=== PATIENT | male | born 1955 | race Caucasian/White ===

== ENCOUNTER → 2016-08-03 | Outpatient (CLI) | payer SELFPAY ==
[2016-08-03 18:41] LABS: Basophils # (A) 0.1 k/uL (0-0.2); Basophils % (A) 1 %; CH 33.8; Eosinophils # (A) 0.4 k/uL (0-0.7); Eosinophils % (A) 9 %; HCT 41.4 % (39.0-53.0); HDW 2.19; HGB 14.1 gm/dL (13.0-17.5); Luc # (Auto) 0.13; Luc % (Auto) 3; Lymphocytes % (A) 26 %; MCV 99.8 fL (80.0-100.0); Mean Platelet Volume 7.4; Monocytes # (A) 0.3 k/uL (0-1.0); Monocytes % (A) 8 %; Neutrophils % (A) 52 %; RBC 4.15 m/uL (4.30-5.90); RDW 12.2 % (11.5-15.5); WBC 3.9 k/uL (3.8-10.6); WBC (Perox) 3.75
[2016-08-03 18:56] LABS: ALT 42 U/L (21-72); AST 47 U/L (17-59); Alkaline Phosphatase 45 U/L (38-126); Anion Gap 10 mmol/L; Blood Urea Nitrogen 20 mg/dL (9-20); Calcium 9.7 mg/dL (8.4-10.2); Carbon Dioxide 23 mmol/L (22-30); Chloride 107 mmol/L (98-107); Cholesterol 189 mg/dL (<200); Glucose 92 mg/dL (74-99); HDL Cholesterol 78 mg/dL (40-60); Non-African American GFR(MDRD) >60 (>60 ml/min/1.73 sqM); Potassium 4.4 mmol/L (3.5-5.1); Sodium 140 mmol/L (137-145); Total Bilirubin 0.7 mg/dL (0.2-1.3); Total Protein 6.9 g/dL (6.3-8.2); Triglycerides 57 mg/dL (<150)
== END ==
LOC: MMGSC 09:43
PROVIDERS: ATTEND Family Medicine
DX: E78.5 Hyperlipidemia, unspecified (principal); E03.9 Hypothyroidism, unspecified; I10 Essential (primary) hypertension
CPT/HCPCS: 36415; 80053; 80061; 84439; 84443; 85025

== ENCOUNTER → 2017-06-27 | Outpatient (CLI) | payer BC ==
[2017-06-27 19:32] LABS: ALT 33 U/L (21-72); AST 42 U/L (17-59); Albumin 4.2 g/dL (3.5-5.0); Alkaline Phosphatase 57 U/L (38-126); Anion Gap 10 mmol/L; Blood Urea Nitrogen 25 mg/dL (9-20); Calcium 9.7 mg/dL (8.4-10.2); Carbon Dioxide 25 mmol/L (22-30); Chloride 102 mmol/L (98-107); Cholesterol 178 mg/dL (<200); Glucose 87 mg/dL (74-99); HDL Cholesterol 70 mg/dL (40-60); LDL Cholesterol,Calculated 93 mg/dL (0-99); Potassium 4.4 mmol/L (3.5-5.1); Sodium 137 mmol/L (137-145); Total Bilirubin 0.3 mg/dL (0.2-1.3); Total Protein 6.6 g/dL (6.3-8.2); Triglycerides 76 mg/dL (<150)
[2017-06-27 19:40] LABS: Basophils % (A) 1 %; Eosinophils # (A) 0.7 k/uL (0-0.7); Eosinophils % (A) 10 %; HCT 39.5 % (39.0-53.0); HGB 13.7 gm/dL (13.0-17.5); Lymphocytes # (A) 1.5 k/uL (1.0-4.8); Lymphocytes % (A) 23 %; MCH 33.2 pg (25.0-35.0); MCHC 34.6 g/dL (31.0-37.0); MCV 96.1 fL (80.0-100.0); Mean Platelet Volume 7.3; Monocytes # (A) 0.4 k/uL (0-1.0); Monocytes % (A) 6 %; Neutrophils # (A) 3.7 k/uL (1.3-7.7); Neutrophils % (A) 57 %; Platelet Count 289 k/uL (150-450); RBC 4.11 m/uL (4.30-5.90); WBC 6.5 k/uL (3.8-10.6)
[2017-06-27 20:40] LABS: PSA Annual Screen 0.23 ng/mL (0.00-4.00)
== END | disposition home or self-care (01) ==
LOC: MMGSC 11:24
PROVIDERS: ATTEND Family Medicine
DX: E78.5 Hyperlipidemia, unspecified (principal); I10 Essential (primary) hypertension; Z12.5 Encounter for screening for malignant neoplasm of prostate
CPT/HCPCS: 84439; 80053; 80061; 84443; 85025; 36415; G0103

== ENCOUNTER → 2020-07-07 | Outpatient (CLI) | payer BC ==
--- NOTE | 2020-07-07 14:26 | MR ---
MR chest with and without contrast HISTORY: Localized swelling, mass, lump, R 22.9 Multiplanar multisequence and postcontrast images obtained through the chest attention to the left ax illa, patient received 6.5 cc Gadavist IV Correlation CT chest 05/06/2020 In the left axilla there is an oval focus which shows fat signal on all pulse sequences and measures approximately 5.7 x 1.7 x 6 cm in cephalad to caudal dimension. There are some soft tissue elements a ssociated with the well encapsulated mass, some enhancement is seen following contrast administration , some mild increased signal noted on inversion recovery sequences scattered within the area. There are some nonenlarged lymph nodes present in the left axilla. Visualized bone marrow signal is u nremarkable. There is no evident abnormality of the chest wall. No pleural effusion. Some arthropathy is present within the shoulder. IMPRESSION: Findings most likely represent lipoma. There may be some local inflammatory changes prese nt. Liposarcoma is felt to be unlikely. Consider follow-up, orthopedic oncology consult as indicated.
== END | disposition home or self-care (01) ==
LOC: RADMRIMAIN 08:48
PROVIDERS: ATTEND Orthopaedic Surgery
DX: R22.2 Localized swelling, mass and lump, trunk (principal)
CPT/HCPCS: 71552; A9585

== ENCOUNTER → 2022-10-20 | Outpatient (CLI) | payer MEDICARE ==
[2022-10-20 09:13] LABS: African American GFR (CKD) >90 (>60 ml/min/1.73 sqM); Blood Urea Nitrogen 17 mg/dL (9-20); Non-African American GFR(CKD) 89 (>60 ml/min/1.73 sqM)
--- NOTE | 2022-10-20 10:50 | CT ---
EXAMINATION TYPE: CT angio chest CT DLP: 357.5 mGycm, Automated exposure control for dose reduction was used. DATE OF EXAM: 10/20/2022 10:21 AM COMPARISON: CTA chest 05/04/2021, MR chest 07/07/2020 CLINICAL INDICATION:Male, 66 years old with history of I71.20 THORACIC AORTIC ANEURYSM; thoracic aort ic aneurysm TECHNIQUE/CONTRAST: CTA scan of the thorax is performed without and with IV Contrast, patient injected with 100 mL of Iso sarah 370. 3D reconstructed images are created on an independent workstation and reviewed.. FINDINGS: Lungs/Pleura: No evidence of focal consolidation, pleural effusion or pneumothorax. Stable calcified granuloma within the medial aspect of the right upper lobe. Lingular 4 mm pulmonary nodule (series 5, image 35). Right lower lobe 4 mm pulmonary nodule (series 5 image 48). These are not definitively se en on prior examination. Airway: Large airways are patent. Heart: Heart is within normal limits for size. No pericardial effusion. Moderate coronary arterial ca lcifications. Vasculature: Stable ascending aortic aneurysm measuring 4.3 cm (series 6, image 83). The aortic root measures up to 3.4 cm which is stable. The inferior portion of the descending thoracic aorta measures 2.3 cm which is stable. No evidence for intramural hematoma or dissection. No evidence for pulmonary embolism. Mediastinum: No pathologically enlarged lymph nodes. Calcified mediastinal and right hilar lymph node s. Musculoskeletal: No acute osseous abnormalities Soft Tissues: Stable suspected left axillary lipoma which is previously described on prior MR chest Lower neck: No significant findings. Upper Abdomen: No significant findings.. IMPRESSION: 1. Stable ascending thoracic aortic aneurysm measuring up to 4.3 cm. 2. Couple of pulmonary nodules not definitively visualized prior examination measuring up to 4 mm. A ttention on follow-up examination. 3. Sequelae of prior granulomatous disease.
== END | disposition home or self-care (01) ==
LOC: RADCTMAIN 08:37
PROVIDERS: ATTEND Surgery
DX: I71.21 Aneurysm of the ascending aorta, without rupture (principal); R91.8 Other nonspecific abnormal finding of lung field
CPT/HCPCS: 82565; 84520; 71275; 36415; Q9967

== ENCOUNTER → 2023-12-13 | Outpatient (CLI) | payer MEDICARE ==
--- NOTE | 2023-12-13 22:37 | CT ---
EXAMINATION TYPE: CT chest wo con DATE OF EXAM: 12/13/2023 COMPARISON: 10/20/2022 HISTORY: Thoracic aortic aneurysm w/o rupture CT DLP: 370 mGycm, Automated exposure control for dose reduction was used. CONTRAST: Performed injected with mL of . TECHNIQUE: Axial images were obtained at 5 mm thick sections. Reconstructed images are reviewed on [employer] computer in the coronal plane. FINDINGS: Portion of the thyroid visualized is normal. No suspicious lung nodules or focal infiltrates are present. Granuloma anterior to the aorta anterior lung field. No enlarged mediastinal or hilar adenopathy is evident. The thoracic aorta at the level of the diaphragm is 2.6 cm. Transverse dimension of the aortic arch i s 3.1 cm. The aortic root is 3.7 cm. The ascending aorta diameter at the level of the main pulmonary artery is 4r.2 cm. The main pulmonary artery diameter at the bifurcation is 2.9 cm. Coronary Artery calcifications present. Limited CT sections are obtained through the upper abdomen. Abdomen is essentially unremarkable. IMPRESSION: 1. Stable ascending thoracic aortic aneurysm. [facility], , 12/13/2023 10:35 PM
== END | disposition home or self-care (01) ==
LOC: RADCTMAIN 06:17
PROVIDERS: ATTEND Surgery
DX: I71.20 Thoracic aortic aneurysm, without rupture, unspecified
CPT/HCPCS: 71250